=== PATIENT | male | born 1975 | race Caucasian/White ===

== ENCOUNTER 2016-05-03 12:37 | Emergency (ER) | payer MEDICAID ==
[~2016-05-03] VITALS: Ht 165.1 cm; Wt 70.8 kg
[2016-05-03 13:27] LABS: BASOPHILS % (AUTO) 0.2 % (0.0-2.0); DIFF TOTAL % 100 %; EOSINOPHILS % (AUTO) 0.3 % (0.0-6.0); HEMATOCRIT 48 % (39-51); HEMOGLOBIN 16.1 g/dL (13.5-17.5); LYMPHOCYTES # (AUTO) 2.6 /CMM (0.8-4.8); LYMPHOCYTES % (AUTO) 19.8 % (20.0-44.0); MEAN CORPUSCULAR HEMOGLOBIN 29 PG (26.0-33.0); MEAN CORPUSCULAR HGB CONC 33 g/dl (31.0-36.0); MEAN CORPUSCULAR VOLUME 87 fL (80-96); MONOCYTES % (AUTO) 7.6 % (2.0-12.0); NEUTROPHILS # (AUTO) 9.4 /CMM (1.8-8.9); NEUTROPHILS % (AUTO) 72.1 % (43.0-81.0); PLATELET COUNT (AUTO) 214 /CMM (150-450); RED BLOOD CELL COUNT(AUTO) 5.54 MIL/uL (4.5-6.0)
[2016-05-03] MEDS ORDERED: MORPHINE SULFATE INJ 2 MG/ML DISP.SYRIN IV ONE ×2 (13:30→15:00)
[2016-05-03] MEDS ORDERED: IV NS 0.9% 1,000 ML BAG IV ONE (13:30)
[2016-05-03] MEDS ORDERED: TDAP [DIPH/PERTUSSIS/TET] 0.5 ML VIAL IM ONE ×2 (13:30→13:31)
[2016-05-03] MEDS ORDERED: ONDANSETRON HCL/PF 4 MG/2 ML VIAL IVP ONE (13:30)
[2016-05-03] MEDS ORDERED: IV SET PRIMARY PUMP SET 1 EA INFUS.SET MC ONE (13:31)
[2016-05-03] MEDS ORDERED: IV NS 0.9% 1,000 ML ONE (13:31)
[2016-05-03] MEDS ORDERED: ONDANSETRON HCL/PF 4 MG/2 ML VIAL ONE (13:31)
[2016-05-03] MEDS ORDERED: MORPHINE SULFATE INJ 4 MG/ML DISP.SYRIN ONE ×2 (13:31→14:40)
[2016-05-03 13:42] LABS: CALCIUM, SERUM 8.8 mg/dL (8.5-10.1); CREATININE 1.1 mg/dL (0.6-1.3); POTASSIUM 4.4 mmol/L (3.5-5.1)
[2016-05-03 13:53] LABS: PROTHROMBIN TIME 10.5 SECS (9.5-12.7)
[2016-05-03] MEDS ORDERED: CT SWABBABLE VALVE TRANS SET 1 EA INFUS.SET MC ONE (13:56)
[2016-05-03] MEDS ORDERED: IOHEXOL-300 100 ML VIAL IV ONE (13:56)
[2016-05-03] MEDS ORDERED: IV NS 0.9% 250 ML IV ONE (13:56)
[2016-05-03] MEDS ORDERED: KETOROLAC TROMETHAMINE INJ 30 MG/ML VIAL ONE (15:27)
[2016-05-03] MEDS ORDERED: KETOROLAC TROMETHAMINE INJ 30 MG/ML VIAL IV ONE (15:30)
[2016-05-03 16:05] VITALS: BP 110/80
== END 2016-05-03 16:06 | disposition home or self-care (01) ==
LOC: ER 12:41
DX: S20.212A Contusion of left front wall of thorax, initial encounter (principal); S00.91XA Abrasion of unspecified part of head, initial encounter; Y04.0XXA Assault by unarmed brawl or fight, initial encounter; Y92.89 Other specified places as the place of occurrence of the external cause; Y93.89 Activity, other specified; Y99.8 Other external cause status
CPT/HCPCS: 36415; 70450-TC; 70486-TC; 71260-TC; 72125-TC; 80048-TC; 85025-TC; 85730-TC; 90715; A4606; G0480; J1885; J2270; J2405; J7030; J7050; L0172; Q9967; Z7610

== ENCOUNTER 2018-03-19 16:48 | Emergency (ER) | payer SELFPAY ==
[~2018-03-19] VITALS: Ht 177.8 cm; Wt 83.9 kg
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
[2018-03-19] MEDS ORDERED: HYDROCODONE/APAP 5/325MG 1 EACH TABLET ONE (17:42)
[2018-03-19] MEDS ORDERED: ALBUTEROL FS 2.5 MG/3 ML VIAL.NEB ONE (17:48)
[2018-03-19] MEDS ORDERED: IPRATROPIUM NEB FS 0.5 MG/2.5 ML AMPUL.NEB ONE (17:48)
[2018-03-19] MEDS ORDERED: IPRATROPIUM NEB FS 0.5 MG/2.5 ML AMPUL.NEB NEB ONE (18:00)
[2018-03-19] MEDS ORDERED: HYDROCODONE/APAP 5/325MG 1 EACH TABLET PO ONE (18:00)
[2018-03-19] MEDS ORDERED: ALBUTEROL FS 2.5 MG/3 ML VIAL.NEB NEB ONE (18:00)
[2018-03-19 19:32] VITALS: BP 147/75
--- NOTE | 2018-03-19 19:35 | NUR ---
Patient discharged to home in stable condition. Written and verbal after care instructions given. Patient verbalizes understanding of instruction. PT AMBULATORY WITH STEADY GAIT.
== END 2018-03-19 19:37 | disposition home or self-care (01) ==
LOC: ER 16:51
DX: S09.8XXA Other specified injuries of head, initial encounter (principal); G89.29 Other chronic pain; M54.5 Low back pain; J20.9 Acute bronchitis, unspecified; Z88.0 Allergy status to penicillin; V49.59XA Passenger injured in collision with other motor vehicles in traffic accident, initial encounter; Y93.89 Activity, other specified; Y92.413 State road as the place of occurrence of the external cause; Y99.8 Other external cause status